=== PATIENT | female | born 1980 | race Caucasian/White ===

== ENCOUNTER 2017-05-25 18:53 | Emergency (ER) | payer BC ==
[~2017-05-25] VITALS: Ht 172.7 cm; Wt 86.4 kg
[~2017-05-25 18:53] MED LIST: ABILIFY 10MG TA10 MG PO; ADVIL LIQUI-GE200 MG PO; BUPROPION HYDR150 M3 PO; HYDROXYZINE PAM25 M1 PO; LEVOTHYROXINE0.15 MG PO; PRESTIQ; PRISTIQ50 M1 PO; TRAZODONE HYDR150 MG PO; TYLENOL 325MG325 MG PO; VIBRAMYCIN100 MG PO; VYVANSE60 MG PO
[2017-05-25 21:40] VITALS: BP 137/90
== END 2017-05-25 21:40 | disposition home or self-care (01) ==
LOC: ED 18:53
DX: R11.2 Nausea with vomiting, unspecified (principal); R10.31 Right lower quadrant pain; R10.32 Left lower quadrant pain; R10.13 Epigastric pain; Z93.1 Gastrostomy status; Z98.84 Bariatric surgery status; F31.9 Bipolar disorder, unspecified; F43.10 Post-traumatic stress disorder, unspecified; F90.9 Attention-deficit hyperactivity disorder, unspecified type; Z79.891 Long term (current) use of opiate analgesic
CPT/HCPCS: J2405; J2765

== ENCOUNTER → 2017-11-16 | Outpatient (CLI) | payer BC | LOC: LAB 09:20 | DX: R05 Cough (principal) ==

== ENCOUNTER 2018-01-19 21:08 | Emergency (ER) | payer BC ==
[~2018-01-19] VITALS: Ht 172.7 cm; Wt 76.4 kg
[~2018-01-19 21:08] MED LIST changes: +LEVOTHYROXINE0.2 MG PO; +LOPRESSOR 550 MG/TAB PO; +VENLAFAXINE HY150 MG PO; +WELLBUTRIN XL150 M2 PO
[2018-01-19 23:57] LABS: ALBUMIN 3.4 g/dL (3.5-5.0); BUN/CREATININE RATIO 13.8 (6.0-26.0); CALCIUM 9.1 mg/dL (8.4-10.2); POTASSIUM 3.6 mmol/L (3.6-5.0); TOTAL BILIRUBIN 0.1 mg/dL (0.2-1.3); TOTAL PROTEIN 7.1 g/dL (6.3-8.2)
[2018-01-20 00:03] LABS: EOS # 0.2 (0.04-0.40); EOS % 3.4 % (1.0-5.0); HEMOGLOBIN 11.3 g/dL (12.5-16.0); LYMPH# 2.9 (1.50-4.00); MEAN CELL VOLUME 80 fl (78-100); MEAN CORPUSCULAR HEMOGLOBIN 27 pg (27-31); MEAN CORPUSCULAR HGB CONC 33 g/dL (33-37); MEAN PLATELET VOLUME 8.6 fl (7.4-10.4); MONO # 0.5 (0.20-0.80); NEU # 2.8 (1.40-6.50); PLATELET COUNT 404 K/mm3 (130-400); RED BLOOD COUNT 4.24 M/mm3 (4.10-5.30); RED CELL DISTRIBUTION WIDTH 13.8 % (11.5-14.5); WHITE BLOOD COUNT 6.4 K/mm3 (4.8-10.8)
[2018-01-20 00:09] LABS: PH-URINE 5.5 (5.0 - 8.0); URINE APPEARANCE HAZY; URINE BILIRUBIN NEGATIVE (NEGATIVE); URINE BLOOD TRACE (NEGATIVE); URINE COLOR YELLOW; URINE GLUCOSE NEGATIVE (NEGATIVE); URINE KETONE NEGATIVE (NEGATIVE); URINE LEUKOCYTE ESTERASE 1+ (NEGATIVE); URINE MUCUS PRESENT (NOT PRESENT); URINE NITRATE NEGATIVE (NEGATIVE); URINE PROTEIN(semi-quant) NEGATIVE (NEGATIVE); URINE UROBILINOGEN NORMAL (NORMAL); URINE WBC >50 /hpf (0-3)
[2018-01-20 00:55] VITALS: BP 107/64
== END 2018-01-20 00:55 | disposition home or self-care (01) ==
LOC: ED 21:08
PROVIDERS: Family Medicine
DX: I95.1 Orthostatic hypotension (principal); S06.0X9A Concussion with loss of consciousness of unspecified duration, initial encounter; W19.XXXA Unspecified fall, initial encounter; N39.0 Urinary tract infection, site not specified; S00.03XA Contusion of scalp, initial encounter; I10 Essential (primary) hypertension; F99 Mental disorder, not otherwise specified

== ENCOUNTER 2018-03-10 14:34 | Emergency (ER) | payer BC ==
[~2018-03-10] VITALS: Ht 172.7 cm; Wt 72.7 kg
[~2018-03-10 14:34] MED LIST changes: +DEPAKOTE ER 50500 MG PO; +HALDOL 2MG T2 MG/TAB PO; +RISPERDAL 2M2 MG/TAB PO
[2018-03-10] MEDS ORDERED: LORAZEPAM0.5 M1 PO (14:47)
[2018-03-10] MEDS ORDERED: LEVOTHYROXINE0.15 MG PO (14:48)
[2018-03-10 15:29] VITALS: BP 113/75
== END 2018-03-10 15:36 | disposition home or self-care (01) ==
LOC: ED 14:34
DX: H16.222 Keratoconjunctivitis sicca, not specified as Sjogren's, left eye (principal)

== ENCOUNTER 2018-07-10 07:32 | Emergency (ER) | payer BC ==
[~2018-07-10] VITALS: Ht 172.7 cm; Wt 71.4 kg
[~2018-07-10 07:32] MED LIST changes: +DOXYCYCLINE HY150 M1 PO; +GEODON60 MG PO; +LORAZEPAM0.5 M1 PO; +SEROQUEL 1100 MG/TAB PO
[2018-07-10 09:30] VITALS: BP 101/65
[2018-07-16] MEDS ORDERED: ZIPRASIDONE HCL80 MG PO (11:24)
[2018-07-16] MEDS ORDERED: NEURONTIN300 MG/CAP PO (11:27)
== END 2018-07-10 09:30 | disposition home or self-care (01) ==
LOC: ED 07:32
DX: S93.491A Sprain of other ligament of right ankle, initial encounter (principal); R55 Syncope and collapse; W18.39XA Other fall on same level, initial encounter

== ENCOUNTER → 2018-07-15 | Outpatient (RCR) | payer BC ==
[2018-04-16 11:45] VITALS: BP 112/63
[2018-04-17 13:40] VITALS: BP 106/68
[2018-04-18 10:00] VITALS: BP 115/69
[2018-04-19 10:23] VITALS: BP 99/74
[2018-04-20 12:22] VITALS: BP 122/74
[2018-04-21 14:26] VITALS: BP 124/74
[2018-04-22 09:05] VITALS: BP 98/58
[2018-04-23 09:42] VITALS: BP 106/66
[2018-04-24 10:28] VITALS: BP 111/65
[2018-04-25 15:35] VITALS: BP 99/60
[2018-04-26 17:35] VITALS: BP 112/62
[2018-04-27 16:30] VITALS: BP 109/70
[2018-04-28 14:30] VITALS: BP 112/58
[2018-04-29 10:25] VITALS: BP 109/58
[2018-04-30 20:05] VITALS: BP 100/59
[2018-05-01 08:10] VITALS: BP 106/66
[2018-05-02 20:33] VITALS: BP 121/84
[2018-05-05 14:30] VITALS: BP 100/68
[2018-05-06 13:57] VITALS: BP 100/63
[2018-05-07 11:00] VITALS: BP 103/61
[2018-05-08 16:03] VITALS: BP 106/67
[2018-05-09 10:56] VITALS: BP 96/69
[2018-05-10 10:50] VITALS: BP 98/63
[2018-05-11 14:30] VITALS: BP 117/80
[2018-05-12 09:45] VITALS: BP 100/64
[2018-05-13 11:13] VITALS: BP 114/61
[2018-05-14 10:55] VITALS: BP 102/61
[2018-05-15 10:46] VITALS: BP 106/63
[2018-05-16 16:43] VITALS: BP 117/64
[2018-05-18 10:05] VITALS: BP 115/70
[2018-05-19 11:30] VITALS: BP 100/61
[2018-05-20 10:04] VITALS: BP 114/73
[2018-05-21 12:00] VITALS: BP 106/67
[2018-05-22 10:14] VITALS: BP 92/58
[2018-06-07 10:15] VITALS: BP 94/63
[2018-06-08 11:00] VITALS: BP 97/65
[2018-06-09 10:20] VITALS: BP 81/53
[2018-06-10 09:20] VITALS: BP 103/67
[2018-06-11 15:44] VITALS: BP 90/54
[2018-06-12 13:50] VITALS: BP 99/61
[2018-06-13 13:19] VITALS: BP 105/58
[2018-06-14 12:02] VITALS: BP 112/64
[2018-06-17 10:50] VITALS: BP 104/57
[2018-06-18 10:45] VITALS: BP 104/65
[2018-06-19 10:43] VITALS: BP 107/75
[2018-06-20 17:08] VITALS: BP 107/68
[2018-06-21 12:26] VITALS: BP 103/67
[2018-06-22 12:30] VITALS: BP 94/53
[2018-06-23 12:40] VITALS: BP 94/57
[2018-06-24 11:45] VITALS: BP 94/64
[2018-06-26 15:58] VITALS: BP 105/67
[2018-06-27 11:45] VITALS: BP 101/70
[2018-06-28 12:39] VITALS: BP 103/66
[2018-06-29 10:05] VITALS: BP 117/80
[2018-06-30 13:00] VITALS: BP 97/65
[2018-07-01 11:18] VITALS: BP 129/71
[2018-07-02 10:05] VITALS: BP 107/68
[2018-07-03 11:44] VITALS: BP 103/67
[2018-07-04 14:22] VITALS: BP 100/70
[2018-07-05 10:30] VITALS: BP 103/67
[2018-07-06 10:28] VITALS: BP 106/69
[2018-07-07 10:41] VITALS: BP 89/57
[2018-07-08 10:36] VITALS: BP 103/65
[2018-07-09 10:34] VITALS: BP 95/64
[2018-07-11 17:02] VITALS: BP 99/57
[2018-07-12 12:12] VITALS: BP 122/76
[2018-07-13 10:40] VITALS: BP 126/64
[2018-07-14 10:52] VITALS: BP 111/76
[~2018-07-15] VITALS: Ht 177.8 cm; Wt 86.4 kg
[~2018-07-15] MED LIST changes: +NEURONTIN300 MG/CAP PO; +ZIPRASIDONE HCL80 MG PO
[2018-07-15 12:06] VITALS: BP 119/83
== END | disposition home or self-care (01) ==
LOC: AMSURD
DX: Z48.00 Encounter for change or removal of nonsurgical wound dressing (principal); S31.109A Unspecified open wound of abdominal wall, unspecified quadrant without penetration into peritoneal cavity, initial encounter

== ENCOUNTER 2018-07-24 11:00 | Outpatient (RCR) | payer BC ==
[2018-07-16 10:47] VITALS: BP 107/76
[2018-07-18 11:03] VITALS: BP 125/63
[2018-07-19 10:49] VITALS: BP 101/67
[2018-07-21 11:49] VITALS: BP 104/68
[2018-07-22 11:00] VITALS: BP 110/67
[2018-07-23 11:20] VITALS: BP 115/67
[~2018-07-24] VITALS: Ht 177.8 cm; Wt 86.4 kg
[2018-07-24 11:02] VITALS: BP 110/75
[2018-07-31] MEDS ORDERED: LEVOTHYROXINE175 MCG PO (20:22)
[2018-07-31] MEDS ORDERED: OXYCODONE PO (20:22)
[2018-07-31] MEDS ORDERED: QUETIAPINE FUM300 M1 PO (20:23)
[2018-07-31] MEDS ORDERED: HYDROXYZINE PAM25 M1 PO (20:26)
[2018-07-31] MEDS ORDERED: BUSPIRONE HYDRO10 MG PO (20:27)
[2018-08-03] MEDS ORDERED: SANTYL30 GM TP (13:16)
[2018-08-07] MEDS ORDERED: SANTYL30 GM TP (11:16)
== END 2018-07-24 19:00 | disposition home or self-care (01) ==
LOC: AMSURD 11:00
DX: Z48.00 Encounter for change or removal of nonsurgical wound dressing (principal); T81.41XD Infection following a procedure, superficial incisional surgical site, subsequent encounter; S31.109D Unspecified open wound of abdominal wall, unspecified quadrant without penetration into peritoneal cavity, subsequent encounter

== ENCOUNTER 2018-09-23 13:04 | Emergency (ER) | payer BC ==
[~2018-09-23] VITALS: Ht 172.7 cm; Wt 66.8 kg
[~2018-09-23 13:04] MED LIST changes: +BUSPIRONE HYDRO10 MG PO; +LEVOTHYROXINE175 MCG PO; +OXYCODONE PO; +QUETIAPINE FUM300 M1 PO; +SANTYL30 GM TP
[2018-09-23] MEDS ORDERED: CEPHALEXIN500 M1 PO (13:35)
[2018-09-23 14:02] VITALS: BP 111/70
== END 2018-09-23 14:02 | disposition home or self-care (01) ==
LOC: ED 13:04
DX: K13.0 Diseases of lips (principal); S00.551A Superficial foreign body of lip, initial encounter; F32.9 Major depressive disorder, single episode, unspecified; F41.9 Anxiety disorder, unspecified; Z98.84 Bariatric surgery status; Z88.2 Allergy status to sulfonamides; Z79.899 Other long term (current) drug therapy; Z87.891 Personal history of nicotine dependence

== ENCOUNTER 2018-10-27 11:17 | Outpatient (RCR) | payer BC ==
[2018-07-30 13:34] VITALS: BP 105/72
--- NOTE | 2018-07-30 13:35 | NUR ---
DRESSING REMOVED WITH MODERATE AMOUNT OF BROWN DRAINAGE NOTED. WOUND BEGINS TO BLEED. WOUND BED PINK. ODOROUS. AREA CLEANSED. TUNNELING NOTED TO MEDIAL EDGE OF INCISION AT 9 O CLOCK. AREAS REPACKED AND COVERED WITH WET TO DRY DRESSING
[2018-07-31 09:41] VITALS: BP 125/68
[2018-08-01 12:40] VITALS: BP 110/82
--- NOTE | 2018-08-01 12:44 | NUR ---
CALL TO UPDATE ABOUT DRAINAGE AND ODOR/PAIN AT WOUND SITE, PT HAS A NEW APPOINTMENT FOR TOMORROW AT 1PM, PT NOTIFIED AND AGREEABLE
[2018-08-03 13:15] VITALS: BP 117/76
--- NOTE | 2018-08-03 13:16 | NUR ---
NEW ORDERS FOR SANTYL "PATIENTS OWN MED" DURING THIS VISIT, PT STATES SHE WAS UNABLE TO GET SANTYL FROM [facility] DUE TO INSURANCE, JUVENCIO TOLD PT SHE COULD GET THE CREAM ON 08/05/18, AT THIS TIME PREVIOUS ORDER OF PACKING AND WET TO DRY DRESSING ADMINISTERED UNTIL MEDICATION IS AVAILABLE, WOUND STILL VERY PAINFUL AND A VERY STRONG PUNGEANT ODOR PRESENT, PT'S REPORTS FRUSTRATION AND "EMBARRASSMENT" ABOUT BEING ABLE TO SMELL WOUND FROM ACROSS THE ROOM WHILE "FULLY CLOTHED," PT STATES SHE HAS HAD THIS CONVERSATION WITH HER DOCTOR AND AT THIS TIME NO NEW ORDERS ARE IN PLACE OTHER THAN SANTYL CREAM, PT STATES HER DOCTOR SAYS THAT THE ODOR/DRAINAGE/AND PAIN ARE ALL TO BE EXPECTED AT THIS POINT IN HEALING
[2018-08-04 10:44] VITALS: BP 98/72
[2018-08-05 11:00] VITALS: BP 89/64
--- NOTE | 2018-08-06 12:38 | NUR ---
DR CHRIS HERRERA NURSE CALLS TO INFORM THIS NURSE THAT PT WAS SEEN IN THEIR OFFICE TODAY. SHE GIVES VERBAL INSTRUCTIONS THAT WOUND BED IS 4 CM DEEP AND NEEDS TO BE TIGHTLY PACKED. REPORTS PACKING WAS COMING OUT OF WOUND AT THEIR OFFICE TODAY. THIS NURSE REPORTS THAT WAS ONE OF [facility] PACKING HAS BEEN COMING OUT DUE TO LARGE AMOUNTS OF DRAINAGE AND PT MOVEMENT DURING DAY. NURSE SHARON EDUCATES THIS NURSE THAT WOUND NEEDS PACKED TIGHTLY WITH MORE PRESSURE APPLIED. SHARON FAXES DR PEREZ PROGRESS NOTE OVER. THIS NURSE REVIEWS NOTE AND PT CASE WITH SEE WATCH SUPERVISOR
[2018-08-07 11:05] VITALS: BP 108/68
--- NOTE | 2018-08-07 11:10 | NUR ---
PT'S WOUND SIGNIFICANTLY DEEPER TODAY WITH RED/BEEFY TISSUE PRESENT, LESS ODOR, LESS PAIN AND LESS DRAINAGE NOTED, PT REPORTS SHE SAW YESTERDAY AND A "LARGE ABSESS WAS "POPPED" AND A TON OF DRAINAGE (GAUZE AFTER GAUZE AFTER GAUZE) WAS REMOVED," PT REPORTS DRAINAGE WAS VERY ODOROUS BUT SHE DID GET SOME RELIEF FROM THIS PROCEDURE, SANTYL CREAM APPLIED TO WOUND BED, PACKED WITH MOIST 4X4 GAUZE, AND WET TO DRY DRESSING APPLIED PER ORDERS, PT STATES SHE IS GOING TO HAVE MORE FREQUENT FOLLOW UPS AND MONITORING WITH , NEXT APPT IS NEXT SUNDAY, BARBIE DARNELL IN TO ASSESS WOUND AND IS PLEASED WITH CURRENT STATE, NO NEW RECOMMENDATIONS OR ODERS, WILL CONTINUE TO MONITOR AND CHANGE DRESSINGS DAILY PER ORDERS AT THIS TIME, PT'S AFEBRILE AND VITAL SIGNS ARE STABLE, MUCH LESS ODOR NOTED TODAY THAN PREVIOUS VISITS
[2018-08-08 10:23] VITALS: BP 99/65
[2018-08-09 14:55] VITALS: BP 101/67
[2018-08-10 14:08] VITALS: BP 107/74
[2018-08-11 12:35] VITALS: BP 110/67
--- NOTE | 2018-08-11 12:54 | NUR ---
WOUND CHANGE COMPLETED WITH MINIMAL BLEEDING NOTED. LARGE AMOUNT OF DRAINAGE NOTED TO OLD DRESSING UPON REMOVAL. CLEANED WOUND WITH SALINE AND REMOVED SMALL AMOUNT OF EXUDATE. MINIMAL BLEEDING NOTED TO WOUND BED. WOUND BED APPEARS TO BE RED/PINK BEEFY WITH SMALL AMOUNT OF ODOR NOTED. USED 1/4" PACKING IN THE TUNNEL AND PACKED THE REST OF WOUND WITH 4X4 GAUZE. WET TO DRY DRESSING APPLIED AND SECURED WITH HYPAFIX. PATIENT TOLERATED WELL.
[2018-08-12 12:28] VITALS: BP 104/69
--- NOTE | 2018-08-12 12:30 | NUR ---
WOUND APPEARS MUCH BETTER THIS ENCOUNTER THAN PREVIOUS, HEALING WELL, RED BEEFY TISSUE NOTED INSIDE WOUND BED, CLEANSED USING WOUND CLEANSERGASTON APRN AT BEDSIDE ASSESSING WOUND, NO NEW ORDERS AT THIS TIME, AGREES THAT WOUND LOOKS "WELL" AT THIS TIME, NO ODOR NOTED WHICH IS ALSO AN IMPROVEMENT, TUNNELING NOTED AT 8 O'CLOCK AND PACKED WITH NU-GAUZE, LARGER WOUND PACKED USING 4X4 AND NORMAL SALINE, SECURED WITH 4X4'S AND HYPAFIX, VITALS STABLE, PT REPORTS SHE HAS AN APPOINTMENT WITH HER SURGEON TOMORROW TO REASSESS THE WOUND WELL
[2018-08-14 15:09] VITALS: BP 107/72
--- NOTE | 2018-08-14 15:16 | NUR ---
PT HERE FOR DRESSIGN CHANGE PULLED APPROX 50 CM OF IDOFORM GAUZE OUT OF WOUND BED. ASSESED WOUND BED, TISSUE IS PINK WITH MINIMAL SMELL AND MODERATE AMOUNT OF DRAINAGE ON DRESSING. THERE IS A VISABLE SUTURE IN THE LOWER LEFT OF WOUND BED. PT REPORTS THAT DOCTOR REPORTS WOUND LOOKING WELL AND TO CONTINUE CURRENT TX AT THIS TIME. PT HAD DR APPOINTMENT ON 08/13/18.
[2018-08-15 10:10] VITALS: BP 119/77
--- NOTE | 2018-08-16 11:23 | NUR ---
PT ARRIVES FOR DRESSING CHANGE. OLD DRESSING REMOVED AND PACKING REMOVED FROM WOUND. PACKING SATURATED IN MODERATE AMOUNT OF YELLOW TINGED THICK DRAINAGE. WOUND CLEANSED AND MEASURED. WOUND OPENING MEASURES 3.5 CM IN LENGTH ACROSS. HOWEVER MEDIAL SIDE OF WOUND IS TUNNELED APPROX 3 CM BETWEEN 8 AND 10 OCLOCK. THIS PORTION OF WOUND PACKED WITH NU GAUZE. REST OF WOUND PACKED WITH GAUZE IN WET TO DRY FASHION. PT TOLERATES WELL.
[2018-08-17 09:50] VITALS: BP 95/63
--- NOTE | 2018-08-17 09:50 | NUR ---
Pt tolerated packing fairly well - come facial expressions noted to indicate pain but pt refuses discomfort. Old drsg with very minimal odor - noted yellow creamy drainage on old packing removed and on 4 x 4's. Tunneling at 8-10 oclock noted in wound. Wound bed beefy red and clean w/ blue stitch noted (which pt states is supposed to be there). Santyl applied to wound bed. NS moistened 1/4" packing packed into wound. Additional piece of packing needed to finish at top of wound. Covered with dry 4 x 4's and secured w/ hypafix tape.
[2018-08-19 09:20] VITALS: BP 94/69
[2018-08-20 11:05] VITALS: BP 102/70
[2018-08-21 10:20] VITALS: BP 101/68
[2018-08-22 10:29] VITALS: BP 105/64
[2018-08-23 19:51] VITALS: BP 108/64
[2018-08-25 12:52] VITALS: BP 105/71
[2018-08-26 14:26] VITALS: BP 120/75
[2018-08-28 13:36] VITALS: BP 120/82
--- NOTE | 2018-08-28 13:36 | NUR ---
DISCUSSED LOW GRADE FEVER AGAIN THIS ENCOUNTER, WOUND SITE IS HEALING WELL, MINIMAL DRAINAGE, NO ODOR NOTED, SURROUNDING SKIN HEALTHY NO SIGNS OF INFECTION, DECREASING IN SIZE, PT REPORTS "MINIMAL BODY ACHES," BUT DENIES FEELING ILL IN ANY WAY, PT STATES SHE WILL TAKE TYLENOL AND CONTINUE TO MONITOR FOR ANY SIGNS OF INFECTION
[2018-08-29 14:15] VITALS: BP 105/76
[2018-08-30 12:00] VITALS: BP 115/81
[2018-08-31 12:25] VITALS: BP 104/66
[2018-09-01 14:15] VITALS: BP 108/74
[2018-09-02 10:52] VITALS: BP 92/61
[2018-09-03 10:40] VITALS: BP 98/68
[2018-09-04 10:45] VITALS: BP 110/65
[2018-09-05 15:39] VITALS: BP 103/66
[2018-09-07 09:50] VITALS: BP 104/70
--- NOTE | 2018-09-07 10:18 | NUR ---
Dressing change completed at this time. Wound is cleansed with wound cleanser and sterile water. Ointment applied to wound base. 1.2 cm tunneling noted at 9 o' clock. Serosanguinous drainage present. Mild amount of purulent drainage present. No odor to wound. Patient denies pain stating "it feels a lot better and it doesn't have a smell like it used to" Nu gauze packing and 4x4 gauze applied in wet to dry fashion. Hypafix placed on top of wound.
[2018-09-08 12:39] VITALS: BP 111/69
[2018-09-09 11:45] VITALS: BP 105/70
[2018-09-10 09:40] VITALS: BP 112/76
[2018-09-11 15:19] VITALS: BP 116/74
[2018-09-13 17:20] VITALS: BP 116/77
[2018-09-14 14:50] VITALS: BP 127/74
[2018-09-15 16:10] VITALS: BP 107/71
[2018-09-16 12:28] VITALS: BP 120/74
[2018-09-18 13:20] VITALS: BP 101/71
[2018-09-19 11:59] VITALS: BP 96/64
[2018-09-20 15:02] VITALS: BP 113/75
[2018-09-21 12:26] VITALS: BP 158/78
[2018-09-22 16:50] VITALS: BP 112/76
[2018-09-23 11:11] VITALS: BP 112/65
[2018-09-24 16:01] VITALS: BP 105/71
[2018-09-26 14:05] VITALS: BP 112/69
[2018-09-28 14:09] VITALS: BP 118/75
[2018-09-29 13:52] VITALS: BP 112/71
[2018-09-30 13:55] VITALS: BP 111/74
[2018-10-01 13:30] VITALS: BP 107/76
[2018-10-03 10:53] VITALS: BP 110/74
[2018-10-05 13:58] VITALS: BP 101/63
[2018-10-07 15:39] VITALS: BP 109/62
[2018-10-10 11:13] VITALS: BP 111/74
[2018-10-12 10:36] VITALS: BP 107/73
--- NOTE | 2018-10-14 09:15 | NUR ---
Spoke with nurse at Dr. Sherman's office regarding patient not showing up for daily dressing changes. Patient has came in for her dressing changes only 11 times since 09/24/18. Patient stated that she has a follow up appointment today. Asked nurse to fax new orders if necessary after appointment.
--- NOTE | 2018-10-15 14:31 | NUR ---
PT CALLS TO NOTIFY THAT SHE WILL NOT BE IN FOR DRESSING CHANGE TODAY R/T WEATHER. WILL ATTEMPT RETURN TOMORROW.
[2018-10-16 11:56] VITALS: BP 118/72
--- NOTE | 2018-10-17 16:00 | NUR ---
PATIENT CALLS TO ADVISE THAT SHE HAS MISSED HER DRESSING CHANGE APPT DUE TO ILLNESS. SHE BELIEVES SHE WILL BE FEELING BETTER TOMORROW.
[2018-10-18 15:29] VITALS: BP 107/78
[2018-10-19 13:23] VITALS: BP 108/74
[2018-10-21 15:40] VITALS: BP 124/77
[2018-10-23 14:18] VITALS: BP 118/81
[2018-10-25 14:08] VITALS: BP 111/73
[~2018-10-27] VITALS: Ht 172.7 cm; Wt 69.5 kg
[~2018-10-27 11:17] MED LIST changes: +CEPHALEXIN500 M1 PO; +LEVOTHYROXINE0.05 MG PO
[2018-10-27 11:40] VITALS: BP 108/71
== END 2018-10-28 | disposition home or self-care (01) ==
LOC: AMSURD
DX: Z48.01 Encounter for change or removal of surgical wound dressing (principal); Z79.1 Long term (current) use of non-steroidal anti-inflammatories (NSAID); Z79.891 Long term (current) use of opiate analgesic; Z79.899 Other long term (current) drug therapy

== ENCOUNTER 2018-10-31 11:06 | Outpatient (RCR) | payer BC ==
[2018-10-29 13:28] VITALS: BP 106/73
[~2018-10-31] VITALS: Ht 172.7 cm; Wt 69.5 kg
[2018-10-31 11:13] VITALS: BP 112/72
== END 2018-11-01 08:00 | disposition still patient (30) ==
LOC: AMSURD 11:06
DX: Z48.00 Encounter for change or removal of nonsurgical wound dressing (principal); S31.109A Unspecified open wound of abdominal wall, unspecified quadrant without penetration into peritoneal cavity, initial encounter